=== PATIENT | male | born 1985 | race Caucasian/White ===

== ENCOUNTER 2017-01-05 19:11 | Emergency (ER) | payer MEDICARE, OTHER ==
[2017-01-05 21:07] LABS: RED BLOOD COUNT 5.31 M/UL (4.20-5.50); WHITE BLOOD COUNT 8.9 K/UL (4.5-11.0)
== END 2017-01-05 22:12 | disposition home or self-care (01) ==
LOC: ER1 19:11
PROVIDERS: Nurse Practitioner Family
DX: N39.0 Urinary tract infection, site not specified (principal); G82.20 Paraplegia, unspecified; F17.210 Nicotine dependence, cigarettes, uncomplicated
CPT/HCPCS: 36415; 81001; 85025; 87086; 99283

== ENCOUNTER 2017-01-15 15:20 | Emergency (ER) | payer MEDICARE, OTHER | END 2017-01-15 18:25 | disposition home or self-care (01) | LOC: ER1 15:20 | DX: N39.0 Urinary tract infection, site not specified (principal); F17.200 Nicotine dependence, unspecified, uncomplicated | CPT/HCPCS: 81001; 87077; 87086; 87186; 96372; 99283; J0696 ==

== ENCOUNTER 2017-02-03 12:14 | Emergency (ER) | payer MEDICARE, OTHER | END 2017-02-03 14:54 | disposition home or self-care (01) | LOC: ER1 12:14 | DX: T83.511A Infection and inflammatory reaction due to indwelling urethral catheter, initial encounter (principal); R51 Headache; F17.210 Nicotine dependence, cigarettes, uncomplicated | CPT/HCPCS: 36415; 81001; 87086; 99284 ==

== ENCOUNTER 2017-02-22 17:18 | Emergency (ER) | payer MEDICARE, OTHER | END 2017-02-22 20:00 | disposition home or self-care (01) | LOC: ER1 17:18 | DX: J20.9 Acute bronchitis, unspecified (principal); J06.9 Acute upper respiratory infection, unspecified; R31.9 Hematuria, unspecified; Z86.711 Personal history of pulmonary embolism; G82.20 Paraplegia, unspecified; F17.210 Nicotine dependence, cigarettes, uncomplicated; Z79.01 Long term (current) use of anticoagulants | CPT/HCPCS: 36415; 71010; 81001; 87081; 87880; 96372; 99283; J0696; J1100 ==

== ENCOUNTER 2017-03-13 18:34 | Emergency (ER) | payer MEDICARE, OTHER | END 2017-03-13 20:19 | disposition home or self-care (01) | LOC: ER1 18:34 | DX: B35.6 Tinea cruris (principal); G82.20 Paraplegia, unspecified; R35.0 Frequency of micturition; F17.200 Nicotine dependence, unspecified, uncomplicated; Z86.711 Personal history of pulmonary embolism; Z86.718 Personal history of other venous thrombosis and embolism; Z79.01 Long term (current) use of anticoagulants; Z79.899 Other long term (current) drug therapy | CPT/HCPCS: 36415; 81001; 87077; 87086; 87186; 99283 ==